=== PATIENT | female | born 1970 | race Caucasian/White ===

== ENCOUNTER 2018-03-30 08:35 | Emergency (ER) | payer MEDICAID ==
[~2018-03-30] VITALS: Ht 177.8 cm; Wt 78.5 kg
[2018-03-30] MEDS ORDERED: ASPIR 8181 MG PO (08:44)
[2018-03-30] MEDS ORDERED: NAPROSYN500 MG PO (08:46)
[2018-03-30] MEDS ORDERED: TRAZODONE 150150 M1 PO (08:46)
[2018-03-30] MEDS ORDERED: ESTRADIOL 1 MG T1 M1 PO (08:46)
[2018-03-30] MEDS ORDERED: PRILOSEC 20 MG20 MG PO (08:46)
[2018-03-30] MEDS ORDERED: ROBAXIN 750 MG750 MG PO (08:47)
[2018-03-30] MEDS ORDERED: NEURONTIN600 MG PO (08:48)
[2018-03-30] MEDS ORDERED: EPITOL200 MG PO (08:48)
[2018-03-30] MEDS ORDERED: [UNRECOGNIZED DRUG - OTHER] (08:49)
[2018-03-30] MEDS ORDERED: ZANTAC 150MG T150 MG PO (08:52)
[2018-03-30] MEDS ORDERED: AMITRIPTYLINE100 MG PO (08:52)
[2018-03-30 09:00] LABS: ABSOLUTE BASOPHILS 0.1 thou/uL (0.0-0.2); ABSOLUTE EOSINOPHILS 0.2 thou/uL (0.0-0.7); ABSOLUTE LYMPHOCYTES 2.5 thou/uL (0.8-5.3); ABSOLUTE MONOCYTES 0.6 thou/uL (0.0-1.2); ABSOLUTE NEUTROPHILS 6.5 thou/uL (1.6-8.1); BASOPHILS 1.4 %; EOSINOPHILS 2.5 %; HEMATOCRIT 43.2 % (37.0-47.0); HEMOGLOBIN 14.9 gm/dL (12.0-15.0); LYMPHOCYTES 25.3 %; MCH 32.6 pg (26.0-34.0); MCHC 34.5 g/dL (28.0-37.0); MCV 94.6 fL (80.0-100.0); MONOCYTES 5.7 %; MPV 7.9 fl. (7.2-11.1); NUCLEATED RBCS 0 /100WBC; PLATELET COUNT* 261 thou/uL (150-400); POLYS 65.1 %; RBC 4.56 mil/uL (4.20-5.00); RDW-CV 12.3 % (10.5-14.5); WBC 9.9 thou/uL (4.0-11.0)
[2018-03-30 09:14] LABS: APTT 26.2 Seconds (25.0-31.3); PROTIME 9.8 Seconds (9.20-11.50)
[2018-03-30 09:16] LABS: ANION GAP 7 mmol/L (7-16); BUN 14 mg/dL (7-18); CHLORIDE 104 mmol/L (98-107); CO2 29 mmol/L (21-32); CREATININE 0.9 mg/dL (0.6-1.3); GLUCOSE 105 mg/dL (70-99); POTASSIUM 3.7 mmol/L (3.5-5.1); SODIUM 140 mmol/L (136-145)
[2018-03-30 09:32] LABS: ALBUMIN 3.9 g/dL (3.4-5.0); ALKALINE PHOSPHATASE 88 U/L (46-116); CK-MB MASS 0.9 ng/mL (<0.5-3.6); LIPASE 176 U/L (73-393); MAGNESIUM 1.8 mg/dL (1.8-2.4); NT-PRO BRAIN NAT PEPTIDE 30 pg/mL (<300); SGOT 19 U/L (15-37); SGPT 20 U/L (30-65); TOTAL BILIRUBIN 0.5 mg/dL (<0.1-1.0); TOTAL PROTEIN 6.9 g/dL (6.4-8.2); TROPONIN-I LEVEL <0.06 ng/mL (<0.06)
[2018-03-30 09:53] VITALS: BP 121/82
--- NOTE | 2018-03-30 13:31 | EKG ---
[place] [address] ELECTROCARDIOGRAM REPORT Name: JERMAINBANDAR [facility] [id number] Admission: 03/30/18 Attend Phys: Discharge: 03/30/18 Date of : 68 Report #: [id number] THIS REPORT FOR: //name// [facility] ED Test Date: 2018-03-30 Test Time: 08:38:45 Pat Name: BANDAR ALY Department: Room: Gender: F Advisory Services Associate: : 1970 Requested By: Reji Lara Order Number: [id number] MD: Thompson Coulter Measurements Intervals [place] Rate: 103 P: 48 GA: 162 QRS: 70 QRSD: 92 T: 38 QT: 351 QTc: 460 Interpretive Statements Sinus tachycardia No previous ECG available for comparison Electronically Signed On 03-30-2018 13:30:25 SUPERVISOR ACCOUNTS RECEIVABLE by Thompson Coulter [email or web address] <ELECTRONICALLY SIGNED> By: Thompson Coulter MD, [facility] 03/30/18 1330 0838 0838 Thompson Coulter MD, FACC /EPI
== END 2018-03-30 09:53 | disposition home or self-care (01) ==
LOC: M.ERS 08:35
PROVIDERS: Family Medicine
DX: R07.89 Other chest pain (principal); F17.200 Nicotine dependence, unspecified, uncomplicated; F31.9 Bipolar disorder, unspecified; F41.9 Anxiety disorder, unspecified; Z85.41 Personal history of malignant neoplasm of cervix uteri; Z88.2 Allergy status to sulfonamides